=== PATIENT | female | born 1990 | race Hispanic/Latino ===

== ENCOUNTER 2024-06-29 22:09 | Emergency (ER) | payer BC ==
[~2024-06-29] VITALS: Ht 149.9 cm; Wt 77.1 kg
[2024-06-29 22:12] VITALS: TEMP 98.1
[2024-06-29] MEDS ORDERED: NITROGLYCERIN 2% OINT 1 GM PKT ONE (22:25)
[2024-06-29 22:32] VITALS: BP 170/101
[2024-06-29] MEDS: NITROGLYCERIN 2% OINT 1 GM PKT TOP STA (22:32)
[2024-06-29 23:30] VITALS: PULSE 86; RESP 16; O2SAT 100
== END 2024-06-29 23:38 | disposition home or self-care (01) ==
LOC: ER 22:16
DX: S90.111A Contusion of right great toe without damage to nail, initial encounter (principal); X58.XXXA Exposure to other specified factors, initial encounter; Y92.89 Other specified places as the place of occurrence of the external cause; E11.9 Type 2 diabetes mellitus without complications
CPT/HCPCS: 36415; 82948; 99283